=== PATIENT | female | born 1980 | race African-American/Black ===

== ENCOUNTER 2017-03-22 23:12 | Emergency (ER) | payer OTHER ==
[~2017-03-22] VITALS: Ht 165.1 cm; Wt 77.2 kg
[~2017-03-22 23:12] MED LIST: FLEXERIL10 MG PO; LORTAB 5-325 M1 EACH PO; MOTRIN800 MG PO; NAPROSYN500 MG PO; NAPROXEN500 MG PO; PEN-VEE K,VEET500 MG PO
[2017-03-23] MEDS ORDERED: VIBRAMYCIN100 MG PO (00:22)
[2017-03-23] MEDS ORDERED: NAPROXEN500 MG PO (00:22)
[2017-03-23 00:35] VITALS: BP 153/93
== END 2017-03-23 00:35 | disposition home or self-care (01) ==
LOC: EME 23:12
DX: L03.032 Cellulitis of left toe (principal); L60.0 Ingrowing nail; I10 Essential (primary) hypertension; F17.200 Nicotine dependence, unspecified, uncomplicated
CPT/HCPCS: 99281; 99283

== ENCOUNTER 2017-05-11 12:40 | Emergency (ER) | payer OTHER ==
[~2017-05-11] VITALS: Ht 165.1 cm; Wt 76.2 kg
[~2017-05-11 12:40] MED LIST changes: +VIBRAMYCIN100 MG PO
[2017-05-11 13:55] LABS: HEMATOCRIT 37.9 % (36.0-46.0); MCH 29.4 PG (29.0-34.0); MCHC 32.5 G/DL (30.0-36.0); MCV 90.7 FL (83-99); PLATELET COUNT 158 K/uL (156-360); RBC DIS.WIDTH-CV 12.9 % (11.8-14.6); RBC DIS.WIDTH-SD 42.4 % (39-53); RED BLOOD COUNT 4.18 M/uL (3.80-5.20); WHITE BLOOD COUNT 4.3 K/uL (4.1-10.2)
[2017-05-11 14:07] LABS: CHLORIDE 108 mEq/L (99-109); POTASSIUM 4.2 mEq/L (3.7-5.4); SODIUM 143 mEq/L (136-147)
[2017-05-11 14:08] LABS: GLUCOSE 66 mg/dL (70-99)
[2017-05-11 14:10] LABS: ANION GAP 7 MEQ/L (2-14)
[2017-05-11 14:12] LABS: GFR ESTIMATE (CALCULATED) > 59 mL/min/
[2017-05-11 14:13] LABS: TROP-I INTERPRETATION NEGATIVE; TROPONIN-I < 0.01 ng/mL (0.0-0.30); UREA NITROGEN (BUN) 14 mg/dL (9-23)
[2017-05-11] MEDS ORDERED: HYDROCHLOROTH12.5 M3 PO (15:50)
[2017-05-11] MEDS ORDERED: ZOLOFT50 MG PO (15:50)
[2017-05-11] MEDS ORDERED: WELLBUTRIN XL300 MG PO (15:50)
[2017-05-11] MEDS ORDERED: RANITIDINE HCL150 MG PO (15:50)
[2017-05-11] MEDS ORDERED: MONTELUKAST SOD10 MG PO (15:50)
[2017-05-11 16:55] LABS: D-DIMER ELISA < 150.00 ng/mLDDU (<230)
[2017-05-11 17:05] LABS: TROP-I INTERPRETATION NEGATIVE; TROPONIN-I < 0.01 ng/mL (0.0-0.30)
[2017-05-11 17:45] VITALS: BP 119/80
== END 2017-05-11 17:45 | disposition home or self-care (01) ==
LOC: EME 12:40
PROVIDERS: Emergency Medicine
DX: R07.89 Other chest pain (principal); I10 Essential (primary) hypertension; I34.1 Nonrheumatic mitral (valve) prolapse; F17.200 Nicotine dependence, unspecified, uncomplicated; Z91.14 Patient's other noncompliance with medication regimen
CPT/HCPCS: 71020; 80048; 84484; 85027; 85379; 93005; 99281; 99284

== ENCOUNTER 2017-07-17 00:05 | Emergency (ER) | payer OTHER ==
[~2017-07-17] VITALS: Ht 165.1 cm; Wt 76.8 kg
[~2017-07-17 00:05] MED LIST changes: +HYDROCHLOROTH12.5 M3 PO; +MONTELUKAST SOD10 MG PO; +RANITIDINE HCL150 MG PO; +WELLBUTRIN XL300 MG PO; +ZOLOFT50 MG PO
[2017-07-17 00:06] VITALS: BP 137/90
== END 2017-07-17 01:00 | disposition left against medical advice (07) ==
LOC: EME 00:05
DX: S01.511A Laceration without foreign body of lip, initial encounter (principal); Z53.21 Procedure and treatment not carried out due to patient leaving prior to being seen by health care provider

== ENCOUNTER 2017-11-27 02:04 | Emergency (ER) | payer OTHER ==
[~2017-11-27] VITALS: Ht 165.1 cm; Wt 83.8 kg
[2017-11-27] MEDS ORDERED: NORCO 10/3251 TABLET PO (03:32)
[2017-11-27] MEDS ORDERED: AMOXICILLIN500 MG PO (03:32)
[2017-11-27] MEDS ORDERED: MOTRIN600 MG PO (03:32)
[2017-11-27 04:16] VITALS: BP 176/109
== END 2017-11-27 04:16 | disposition home or self-care (01) ==
LOC: EME 02:04
DX: K02.9 Dental caries, unspecified (principal); I10 Essential (primary) hypertension; F17.200 Nicotine dependence, unspecified, uncomplicated; Z87.74 Personal history of (corrected) congenital malformations of heart and circulatory system; Z86.79 Personal history of other diseases of the circulatory system; Z90.89 Acquired absence of other organs
CPT/HCPCS: 99281; 99283

== ENCOUNTER 2017-12-06 09:29 | Emergency (ER) | payer OTHER ==
[~2017-12-06] VITALS: Ht 165.1 cm; Wt 84.5 kg
[~2017-12-06 09:29] MED LIST changes: +AMOXICILLIN500 MG PO; +MOTRIN600 MG PO; +NORCO 10/3251 TABLET PO
[2017-12-06 11:35] LABS: HEMATOCRIT 35.6 % (36.0-46.0); HEMOGLOBIN 12.1 G/DL (11.9-15.5); MCH 30.6 PG (29.0-34.0); MCV 90.1 FL (83-99); PLATELET COUNT 153 K/uL (156-360); RBC DIS.WIDTH-CV 12.2 % (11.8-14.6); RBC DIS.WIDTH-SD 39.7 % (39-53); RED BLOOD COUNT 3.95 M/uL (3.80-5.20); WHITE BLOOD COUNT 5.5 K/uL (4.1-10.2)
[2017-12-06 12:03] LABS: CHLORIDE 105 MEQ/L (99-109); POTASSIUM 3.5 MEQ/L (3.7-5.4); SODIUM 141 MEQ/L (136-147)
[2017-12-06 12:08] LABS: CREATININE 0.6 MG/DL (0.6-1.3); GFR ESTIMATE (CALCULATED) > 59 mL/min/; GLUCOSE 100 mg/dL (70-99); UREA NITROGEN (BUN) 10 mg/dL (9-23)
[2017-12-06 12:29] LABS: QUANTITATIVE HCG < 4.0 MIU/ML
[2017-12-06] MEDS ORDERED: CLINDAMYCIN HC150 MG PO (16:49)
[2017-12-06] MEDS ORDERED: ULTRAM50 MG PO (16:49)
[2017-12-06] MEDS ORDERED: PLAVIX75 MG PO (20:42)
[2017-12-06] MEDS ORDERED: ADULT ASPIRIN R81 MG PO (20:42)
[2017-12-06 21:10] VITALS: BP 149/88
== END 2017-12-06 21:12 | disposition short-term general hospital (02) ==
LOC: EME 09:29
PROVIDERS: Physician Assistant
DX: K04.6 Periapical abscess with sinus (principal); L03.211 Cellulitis of face; I10 Essential (primary) hypertension; F17.200 Nicotine dependence, unspecified, uncomplicated
CPT/HCPCS: 70491; 80048; 84702; 85027; 99281; 99285; J1885; J3010